=== PATIENT | male | born 1960 | race Two or more races ===

== ENCOUNTER 2024-12-19 06:56 | Emergency (ER) | payer OTHER, SELFPAY ==
[2024-12-19 07:00] VITALS: BMI 31.6
[2024-12-19 07:01] VITALS: BP 150/75; PULSE 87; RESP 18; TEMP 36.6; O2SAT 94
[2024-12-19 07:22] VITALS: PULSE 97; RESP 20; O2SAT 99
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
[2024-12-19 09:40] VITALS: BP 148/62; PULSE 82; RESP 16; TEMP 36.7; O2SAT 95
== END 2024-12-19 09:41 | disposition home or self-care (01) ==
PROVIDERS: Emergency Provider Nurse Practitioner Family; PCP Physician Assistant
DX: S13.4XXA Sprain of ligaments of cervical spine, initial encounter (principal); S09.90XA Unspecified injury of head, initial encounter; M54.6 Pain in thoracic spine; V89.2XXA Person injured in unspecified motor-vehicle accident, traffic, initial encounter
CPT/HCPCS: 70450; 72072; 72125; 99284